=== PATIENT | female | born 2000 | race African-American/Black ===

== ENCOUNTER 2018-06-01 00:27 | Outpatient (CLI) | payer OTHER | END 2018-06-01 01:30 | disposition home or self-care (01) | LOC: M LDO 00:27 | DX: O26.893 Other specified pregnancy related conditions, third trimester (principal); R51 Headache; M54.5 Low back pain; Z3A.29 29 weeks gestation of pregnancy | CPT/HCPCS: 59025 ==

== ENCOUNTER → 2018-06-14 | Outpatient (CLI) | payer OTHER | LOC: M RAD 12:02 | DX: Z34.83 Encounter for supervision of other normal pregnancy, third trimester (principal); Z3A.29 29 weeks gestation of pregnancy | CPT/HCPCS: 76811 ==

== ENCOUNTER 2018-06-17 23:47 | Outpatient (CLI) | payer OTHER | END 2018-06-18 01:25 | disposition home or self-care (01) | LOC: M LDO 23:47 | DX: O99.89 Other specified diseases and conditions complicating pregnancy, childbirth and the puerperium (principal); R10.9 Unspecified abdominal pain; D64.9 Anemia, unspecified; Z3A.31 31 weeks gestation of pregnancy; Z79.2 Long term (current) use of antibiotics; Z79.899 Other long term (current) drug therapy | CPT/HCPCS: 76815 ==

== ENCOUNTER 2018-07-11 02:42 | Outpatient (CLI) | payer OTHER ==
[~2018-07-11] VITALS: Ht 157.5 cm; Wt 62.0 kg
[~2018-07-11 02:42] MED LIST: ASCO25TA PO; FERR325T3 PO; MAPA500T2 PO; PRENTAB55 PO; STOO100C PO
[2018-07-11 03:04] VITALS: BP 120/65
== END 2018-07-11 03:43 | disposition home or self-care (01) ==
LOC: M LDO 02:42
PROVIDERS: ATTEND Obstetrics & Gynecology
DX: O26.893 Other specified pregnancy related conditions, third trimester (principal); R10.30 Lower abdominal pain, unspecified; O36.8130 Decreased fetal movements, third trimester, not applicable or unspecified; O23.40 Unspecified infection of urinary tract in pregnancy, unspecified trimester; Z3A.34 34 weeks gestation of pregnancy
CPT/HCPCS: 59025; 87088; 87186; G0378; G0463

== ENCOUNTER 2018-08-01 22:11 | Outpatient (CLI) | payer OTHER ==
[~2018-08-01] VITALS: Ht 154.9 cm; Wt 64.5 kg
[2018-08-01 22:49] VITALS: BP 116/76
[2018-08-02 00:55] VITALS: BP 115/78
[2018-08-02] MEDS ORDERED: ACETAMINOPHEN 500 MG TAB PO PRN (02:00)
--- NOTE | 2018-08-02 03:04 | IPNPDOC ---
Text Note Date of Service The patient was seen on 08/02/18. NOTE Triage Note for fall Anastasiya is a 17yo at 36+5 weeks by early u/s who presents this evening after falling from sitting on her bathroom counter onto the bathtub around 10pm, hitting the side of her belly on the tub. She notes she feels somewhat crampy. F eels movement. No vaginal bleeding or LOF. No f/c/n/v/CP/SOB. Vitals - VSS, afebrile General - A&OX3, resting comfortably in bed, NAD Abdomen - Gravid uterus, slight point tenderness at the area patient describes as where her abdomen hit the tub- no bruising visualized, no rebound/guarding, no pain with manipulation of uterus Extremities - No edema Cat I FHRT: bl 130, +accels, -decels, mod veronica Ball: rare ctx Assessment: Anastasiya is a 17yo at 36+5 weeks by early u/s s/p fall onto side of belly with no evidence of placental abruption. Cat I FHRT, rare ctx on toco over 6hr of monitoring. Vitals wnl, benign exam. No e/o bruising. Plan: -safe for discharge home -keep next OB appt -increase hydration and rest tonight -return precautions discussed MD ALICE Morejon,Zhang, I+O VSZhang I+O Vital Signs Date Time Temp Pulse Resp B/P (MAP) Pulse Ox O2 Delivery O2 Flow Rate FiO2 08/01/18 22:49 98.7 116/76 (89) Cher Kauffman MD Aug 02, 2018 03:03
[2018-08-02 04:08] VITALS: BP 110/55
== END 2018-08-02 04:00 | disposition home or self-care (01) ==
LOC: M LDO 22:11
PROVIDERS: ATTEND Obstetrics & Gynecology
DX: O99.89 Other specified diseases and conditions complicating pregnancy, childbirth and the puerperium (principal); Z3A.36 36 weeks gestation of pregnancy; W19.XXXA Unspecified fall, initial encounter
CPT/HCPCS: 59025; G0378; G0463

== ENCOUNTER 2018-08-23 21:49 | Outpatient (CLI) | payer OTHER ==
[~2018-08-23] VITALS: Ht 157.5 cm; Wt 66.3 kg
[2018-08-23 22:12] VITALS: BP 120/73
--- NOTE | 2018-08-23 22:31 | IPNPDOC ---
Text Note Date of Service The patient was seen on 08/23/18. NOTE 17 yo at 39+5 weeks presents to L&D with regular, painful contractions. She denies any bleeding or leakage of fluid. She endorses excellent movement. is uncomplicated. Chaperoned by L&D RN Vitals - VSS, afebrile, normotensive, non tachycardic General - AAOX3, sitting up in bed, NAD Abdomen - Gravid uterus, no fundal tenderness Cervix - 1/thick/high, posterior FHR: BL - 130, moderate variability, 2 accels in 10 minutes, Cat I tracing Patient not in labor. Discharged home with return precautions. Return to care sooner bleeding, leakage of fluid, worsening contractions, or decreased movement. All patient questions answered. Follow up appointment on [id number]. DO PARVIZ Dia CHRISTOPHER J. DO Aug 23, 2018 22:31
== END 2018-08-23 22:36 | disposition home or self-care (01) ==
LOC: M LDO 21:49
PROVIDERS: ATTEND Obstetrics & Gynecology
DX: O47.1 False labor at or after 37 completed weeks of gestation (principal); Z3A.39 39 weeks gestation of pregnancy
CPT/HCPCS: 59025; G0378; G0463

== ENCOUNTER 2018-08-30 23:49 | Inpatient (IN) | payer OTHER ==
[2018-08-31] VITALS (15 sets, daily range): BP systolic 106–133; BP diastolic 55–85
[2018-08-31] MEDS ORDERED: PENICILLIN G POTASSIUM IV 5 MU in D5W MINI-BAG PLUS 100 ML IV STA ×2 (02:46→04:19)
[2018-08-31] MEDS ORDERED: LR 1,000 ML IV SCH (02:46)
[2018-08-31] MEDS ORDERED: LACTATED RINGER'S 1000 ML IV ONE (03:00)
[2018-08-31 03:47] LABS: HEMOGLOBIN 10.9 g/dl (12.0-15.5); MEAN CORPUSCULAR HEMOGLOBIN 28.5 pg (27.0-33.0); MEAN CORPUSCULAR VOLUME 86.4 fl (80.0-96.0); PLATELET COUNT, AUTOMATED 236 10^3/uL (150-450); RED BLOOD COUNT 3.82 10^6/uL (4.00-5.40); WHITE BLOOD COUNT 10.9 10^3/uL (4.0-10.0)
[2018-08-31] MEDS ORDERED: FENTANYL 2MCG/ML ROPIVACAINE 0.2% IN 0.9% NACL 100ML IVBAG As Ordered ONE (04:18)
[2018-08-31] MEDS ORDERED: ONDANSETRON 4MG/2ML VIAL (J2405) IV PRN (05:30)
[2018-08-31] MEDS ORDERED: FENTANYL/ROPIVACAINE/NACL BAG 100 ML EPIDURAL SCH (05:30)
[2018-08-31] MEDS ORDERED: diphenhydrAMINE INJ 50MG/ML VIAL (J1200) IV PRN (05:30)
[2018-08-31] MEDS ORDERED: EPIDURAL COMMENT XX SCH (05:30)
[2018-08-31] MEDS ORDERED: ePHEDrine SULFATE 25 MG/5 ML(5MG/ML) SYRINGE IV PRN (05:30)
[2018-08-31] MEDS ORDERED: NALOXONE INJ 0.4 MG/1 ML VIAL (J2310) IV PRN (05:30)
[2018-08-31] MEDS ORDERED: REFRIGERATOR IV KEYS XX PRN (05:30)
[2018-08-31] MEDS ORDERED: EPIDURAL/PCA KEYS XX PRN (05:30)
--- NOTE | 2018-08-31 06:15 | NUR ---
[address] srom clear gbs treated 6 cm category 1 strip
--- NOTE | 2018-08-31 06:31 | NUR ---
0630 hrs contractions spaced out will augment with Pitocin category 1 strip safe to proceed
[2018-08-31] MEDS ORDERED: OXYTOCIN DRIP 30 UNITS in APPROPRIATE DILUENT 1 EA IV SCH ×2 (06:45→10:59)
[2018-08-31] MEDS ORDERED: PENICILLIN G POTASSIUM IV 2.5 MU in APPROPRIATE DILUENT 1 EA IV SCH ×2 (07:00→08:30)
[2018-08-31] MEDS: PRENATAL VITAMINS CHEWABLE TABLET PO SCH (09:00)
[2018-08-31] MEDS ORDERED: **PENDING PCN ENTRY XX SCH (09:00)
--- NOTE | 2018-08-31 09:58 | HPE ---
DATE OF ADMISSION: 08/31/2018 17-year-old 1, para 0, last menstrual period 11/13/2017, estimated date of confinement (EDC) 08/25/2018, at 40 and six with a history of contractions, mild in nature. Category one strip. No loss of fluid. She was examined and found to be 2 cm dilated. Risk factors are she has anemia, significant social issues, had a positive chlamydia test and the cure was negative. Group B streptococcus (GBS) positive. Laboratories are A+, HIV negative, hepatitis negative, RPR negative, rubella immune. Varicella immune. Urine had E-coli. Gonorrhea negative. Chlamydia positive. 1-hour glucose 112 and GBS positive. PHYSICAL EXAMINATION: On examination, she appears distressed. Symphysis fundus height is 40, vertex 2 cm thick posterior. No vaginal bleeding or loss. Blood pressure 144/77, respirations are 80, pulse 72, temperature 98.5. She has a category one strip. Normocephalic, atraumatic. Neck with full range of motion. Pupils equal and reactive to light. Distal pulses symmetric. No evidence of DVT, PE or superficial phlebitis. Chest is clear bilaterally to the bases. No wheezes or rhonchi. Four quadrant bowel sounds are noted. She has no rashes, lesions or pruritus. She does have acne. No arthralgia, myalgia, complaint joint pain. No complaint cough, wheeze, shortness of breath or dyspnea on exertion. No bleeding. Neuro complete. No incontinence, urgency frequency. No nausea, vomiting, diarrhea, constipation. No diabetic issues. [employer] issues: She had an STD, and test of cure was negative. Past medical unremarkable. Family history is noncontributory. She does not smoke, drink, or abuse drugs. She is . There are significant social issues. Our plan is to monitor for a couple of hours, recheck her cervix. If there is no change in her cervix, she will be discharged undelivered. She has a induction of labor date of September 02, 2018.
[2018-08-31] MEDS ORDERED: ACETAMINOPHEN TAB 650MG DOSE (2X325MG) PO PRN (11:00)
[2018-08-31] MEDS ORDERED: MEASLES,MUMPS,RUBELLA VACCINE INJ (MMR-II) (90707) SC SCH (11:00)
[2018-08-31] MEDS ORDERED: METOCLOPRAMIDE INJ 10MG/2ML VIAL (J2765) IV PRN (11:00)
[2018-08-31] MEDS ORDERED: DIBUCAINE 1% OINTMENT 30GM TOP PRN (11:00)
[2018-08-31] MEDS ORDERED: medroxyPROGESTERone ACET IM SUSP 150 MG/ML VIAL (J1050) IM ONE (11:00)
[2018-08-31] MEDS ORDERED: RHOGAM 300 MCG (1500 IU) INJ (J2790) IM SCH (11:00)
--- NOTE | 2018-08-31 11:09 | DNPDOC ---
[facility] Delivery Note Delivery Note DATE OF DELIVERY: [id number] PREDELIVERY DIAGNOSIS: 40 6/7 weeks' gestation and labor. POST DELIVERY DIAGNOSIS: Delivered. PROCEDURE: Spontaneous vaginal delivery PAINT LINE OPERATOR: Dr. Ogden ANESTHESIA: Epidural ESTIMATED BLOOD LOSS: 400 mL. FINDINGS: 7 pound 11] ounce female infant, Score 8/9 DELIVERY SUMMARY: Pt found to be C/C/+2. Start pushing. G1 with an epidural. Called to room when vtx surprisingly del'd after just one push. Jayshree controlling the head. No delay of the ant/post shoulders at all and to abd in good shape. Cord C/C by now grandmother, cord blood. Placenta intact with fundal massage, firm. Pit going 999. 1st degr stellate lac repaired with 3-0 vicryl. Good cosmesis/hemostasis. Chooses depoprovera for PP contr. Prakash OGDEN,EUGENIE Gruber MD Aug 31, 2018 11:09
[2018-08-31] MEDS ORDERED: medroxyPROGESTERone ACET IM SUSP 150 MG/ML VIAL (J1050) IM SCH (11:30)
[2018-08-31] MEDS: IBUPROFEN 800 MG TAB PO PRN ×2 (12:06→23:14)
[2018-08-31] MEDS: DOCUSATE SODIUM 100 MG CAP PO SCH (21:00)
[2018-09-01 06:00] VITALS: BP 105/62
[2018-09-01] MEDS: DOCUSATE SODIUM 100 MG CAP PO SCH ×2 (07:54→20:26)
[2018-09-01] MEDS: PRENATAL VITAMINS CHEWABLE TABLET PO SCH (07:54)
--- NOTE | 2018-09-01 09:25 | IPNPDOC ---
Text Note Date of Service The patient was seen on 09/01/18. NOTE PPD1 States feeling well, pain controlled with prescribed meds. Baby bonding and feeding well. No heavy VB. Lochia slowing. Ambulatory. Tolerating PO without issues. Voiding spont. VSSAF NAD A&O RRR CTAB LE no C/C/E Ut at U-2, firm a/p: Doing well. Cont routine care. D/C tomorrow likely. Sessions Zhang PÉREZ, I+O VSZhang I+O Vital Signs Date Time Temp Pulse Resp B/P (MAP) Pulse Ox O2 Delivery O2 Flow Rate FiO2 09/01/18 06:00 97.5 64 18 105/62 (76) 99 I&O- Last 24 Hours up to 6 AM 09/01/18 05:59 Intake Total 3478.3 ml Output Total 1775 ml Balance 1703.3 ml EUGENIE OGDEN MD Sep 01, 2018 09:25
[2018-09-01] MEDS: IBUPROFEN 800 MG TAB PO PRN (16:54)
[2018-09-01 18:00] VITALS: BP 120/65
[2018-09-02] MEDS: IBUPROFEN 800 MG TAB PO PRN (05:02)
[2018-09-02 06:41] VITALS: BP 124/74
--- NOTE | 2018-09-02 08:00 | IPNPDOC ---
Text Note Date of Service The patient was seen on 09/02/18. NOTE PPD2 States feeling well, pain controlled with prescribed meds. Baby bonding and feeding well. No heavy VB. Lochia slowing. Ambulatory. Tolerating PO without issues. Voiding spont. VSSAF NAD A&O RRR CTAB LE no C/C/E Ut at U-2, firm a/p: Doing well. Cont routine care. D/C today. Sessions VS,Zhang, I+O VSZhang, I+O Vital Signs Date Time Temp Pulse Resp B/P (MAP) Pulse Ox O2 Delivery O2 Flow Rate FiO2 09/02/18 06:41 97.4 87 18 124/74 (91) 09/01/18 06:00 99 SESSIONS,EUGENIE Gruber MD Sep 02, 2018 08:00
--- NOTE | 2018-09-02 08:08 | DS.PDOC ---
Discharge Summary General Date of Admission Aug 31, 2018 at 02:45 Date of Discharge [id number] Discharge Summary ADMITTING DIAGNOSES: Active labor DISCHARGE DIAGNOSES: Vaginal delivery HOSPITAL COURSE: Admitted and labor uncomplicated. course uncomplicated. DISCHARGE MEDICATIONS: Motrin, Lanolin, Depo-Provera DISCHARGE INSTRUCTIONS: Nothing in the vagina for 6 weeks. F/U in OBGYN clinic 6-8 weeks. Sessions Vital Signs/I&Os Vital Signs Date Time Temp Pulse Resp B/P (MAP) Pulse Ox O2 Delivery O2 Flow Rate FiO2 09/02/18 06:41 97.4 87 18 124/74 (91) 09/01/18 06:00 99 Discharge Medications Scheduled Ascorbic Acid (Vitamin C) 250 Mg Tab, 1 TAB PO TID, (Reported) Docusate Sodium (Stool Softener) 100 Mg Cap, 1 CAP PO DAILY, (Reported) Multivitamins/ ( 19) 1 Tab Tab, 1 TAB PO DAILY, (Reported) Miscellaneous Medications Acetaminophen (Mapap) 500 Mg Tab, 1,000 MG PO, (Reported) Ferrous Sulfate (Ferrous Sulfate) 325 Mg Tab, 325 MG PO, (Reported) Allergies Coded Allergies: No Known Drug Allergy (Verified Allergy, Unknown, 06/18/18) SESSIONSEUGENIE MD Sep 02, 2018 08:08
[2018-09-02] MEDS: DOCUSATE SODIUM 100 MG CAP PO SCH (08:32)
[2018-09-02] MEDS: PRENATAL VITAMINS CHEWABLE TABLET PO SCH (08:32)
[2018-09-02] MEDS ORDERED: IBUP-1114 PO (08:49)
[2018-09-02] MEDS ORDERED: COLA100C5 PO (08:49)
== END 2018-09-02 12:42 | disposition home or self-care (01) | DRG 807 ==
LOC: M LDO 23:49 → M LDI 08-31 02:45 → M OBS 08-31 14:08
PROVIDERS: ADMIT Obstetrics & Gynecology; ATTEND Obstetrics & Gynecology
PROC: 10E0XZZ Delivery of Products of Conception, External Approach (ICD-10-PCS; principal; 2018-08-31)
PROC: 0HQ9XZZ Repair Perineum Skin, External Approach (ICD-10-PCS; 2018-08-31)
DX: O48.0 Post-term pregnancy (principal); Z37.0 Single live birth; Z3A.40 40 weeks gestation of pregnancy; O99.824 Streptococcus B carrier state complicating childbirth; O70.0 First degree perineal laceration during delivery

== ENCOUNTER 2019-02-09 15:56 | Emergency (ER) | payer OTHER ==
[~2019-02-09] VITALS: Ht 157.5 cm; Wt 48.2 kg
[~2019-02-09 15:56] MED LIST changes: -ASCO25TA PO; +COLA100C5 PO; +IBUP-1114 PO; +MM S100C PO; -STOO100C PO; +VITA1TAB23 PO
[2019-02-09] MEDS ORDERED: [UNRECOGNIZED DRUG - CODE] PO (16:02)
[2019-02-09 17:06] LABS: BASO % 0.7 % (0.0-1.0); EOS # 0.1 10^3/uL (0.0-0.50); HEMATOCRIT 34.9 % (36.0-47.0); HEMOGLOBIN 11.3 g/dl (12.0-15.5); LYMPH # 2.8 10^3/uL (1.5-6.5); LYMPH % 49.8 % (24.0-44.0); MEAN CORPUSCULAR HEMOGLOBIN 28.8 pg (27.0-33.0); MEAN CORPUSCULAR HGB CONC 32.4 g/dl (32.0-36.5); MONO # 0.5 10^3/uL (0.0-0.8); MONO % 9.4 % (0.0-5.0); NEUTROPHILS # 2.1 10^3/uL (1.8-7.7); NEUTROPHILS % 38.1 % (36.0-66.0); PLATELET COUNT, AUTOMATED 269 10^3/uL (150-450); RED BLOOD COUNT 3.92 10^6/uL (4.00-5.40); WHITE BLOOD COUNT 5.6 10^3/uL (4.0-10.0)
[2019-02-09 17:40] LABS: ALBUMIN 3.8 GM/DL (3.2-5.2); ALT/SGPT 14 U/L (12-78); BILIRUBIN,DIRECT 0.1 MG/DL (0.0-0.2); BILIRUBIN,TOTAL 0.3 MG/DL (0.2-1.0); BLOOD UREA NITROGEN 15 MG/DL (7-18); CALCIUM LEVEL 8.7 MG/DL (8.5-10.1); CARBON DIOXIDE LEVEL 23 MEQ/L (21-32); CHLORIDE LEVEL 112 MEQ/L (98-107); CREATININE FOR GFR 0.75 MG/DL (0.55-1.30); GLUCOSE, FASTING 79 MG/DL (70-100); HCG, SERUM QUANTITATIVE < 1.0 MIU/ML; MAGNESIUM LEVEL 2.3 MG/DL (1.8-2.4); POTASSIUM SERUM 4.1 MEQ/L (3.5-5.1); SODIUM LEVEL 142 MEQ/L (136-145)
--- NOTE | 2019-02-09 19:21 | REPVR ---
EXAM: US Pelvis Complete, Transabdominal and US Pelvis, Transvaginal EXAM DATE/TIME: 02/09/2019 5:59 PM CLINICAL HISTORY: 18 years old, female; Menstruation abnormalities; Excessive menstruation; Other: Post delivery x 5 months; Additional info: Vag bleeding x 5 months TECHNIQUE: Imaging protocol: Real-time transabdominal and transvaginal pelvic ultrasound (complete) with image documentation. Transvaginal imaging was used for better evaluation of the endometrium and adnexa. COMPARISON: US OBS SINGEL GEST 06/14/2018 12:13 PM FINDINGS: Uterus/cervix: Uterus measures 9.1 x 4.4 x 6.7 cm. The endometrial echocomplex measures 2.1 mm. Right adnexa: Right ovary measures 3.1 x 0.9 x 1.8 cm Left adnexa: Left ovary measures 4.1 x 1.5 x 2 cm. Free fluid: None. Bladder: Normal. IMPRESSION: Normal study. Electronically signed by: Bob Laughlin On 02/09/2019 19:20:55 PM
[2019-02-09 19:43] VITALS: BP 118/75
[2019-02-09] MEDS ORDERED: CIPR-249 PO (19:43)
[2019-02-09] MEDS ORDERED: CIPROFLOXACIN 500 MG TAB PO ONE (19:45)
--- NOTE | 2019-02-09 21:33 | ECGEPIP ---
[facility] - ED Test Date: 2019-02-09 Pat Name: SYLVIA THOMAS Department: Room: - Gender: Female Market Analyst: TIKI : 2000 Requested By: Lorenzo Mace Order Number: [id number] Reading MD: Xuan Mccauley Measurements Intervals [place] Rate: 83 P: 68 TN: 144 QRS: 75 QRSD: 85 T: 46 QT: 378 QTc: 446 Interpretive Statements SINUS RHYTHM NO PRIOR Electronically Signed on 02-09-2019 21:33:21 EDT by Xuan Mccauley
== END 2019-02-09 19:50 | disposition home or self-care (01) ==
LOC: M ED 15:56
DX: N92.0 Excessive and frequent menstruation with regular cycle (principal); N39.0 Urinary tract infection, site not specified; R55 Syncope and collapse; Z79.899 Other long term (current) drug therapy

== ENCOUNTER → 2019-03-14 | Outpatient (REF) | payer OTHER ==
[~2019-03-14] MED LIST changes: +CIPR-249 PO; +[UNRECOGNIZED DRUG - CODE] PO
[2019-03-14 16:34] LABS: BASO # 0.1 10^3/uL (0.0-0.2); BASO % 0.7 % (0.0-1.0); EOS # 0.3 10^3/uL (0.0-0.50); EOS % 3.6 % (0.0-3.0); HEMOGLOBIN 11.5 g/dl (12.0-15.5); LYMPH % 42.7 % (24.0-44.0); MEAN CORPUSCULAR HEMOGLOBIN 28.7 pg (27.0-33.0); MEAN CORPUSCULAR HGB CONC 31.9 g/dl (32.0-36.5); MEAN CORPUSCULAR VOLUME 89.8 fl (80.0-96.0); MONO # 0.7 10^3/uL (0.0-0.8); MONO % 9.8 % (0.0-5.0); NEUTROPHILS % 42.9 % (36.0-66.0); PLATELET COUNT, AUTOMATED 317 10^3/uL (150-450); RED BLOOD COUNT 4.01 10^6/uL (4.00-5.40)
[2019-03-14 16:39] LABS: PERCENT SATURATION 8.1 % (13.2-45.0)
== END ==
LOC: M SFHCLERA 12:40
PROVIDERS: ATTEND Physician Assistant
DX: M54.5 Low back pain (principal); R53.83 Other fatigue; Z86.2 Personal history of diseases of the blood and blood-forming organs and certain disorders involving the immune mechanism
CPT/HCPCS: 81002; 81025; 82607; 82728; 83550; 85025; G0463